=== PATIENT | female | born 1965 | race African-American/Black ===

== ENCOUNTER 2025-03-02 15:31 | Emergency (ER) | payer OTHER ==
[~2025-03-02] VITALS: Ht 167.6 cm; Wt 68.0 kg
[2025-03-02 15:33] VITALS: O2SAT 95
[2025-03-02] MEDS: MORPHINE SULFATE 4 MG/ML INJ (FOR IV/IM USE) IV ONE ×2 (17:14→20:10)
[2025-03-02] MEDS: ONDANSETRON HCL 4MG/2ML INJ IV ONE (17:14)
[2025-03-02] MEDS: SODIUM CHLORIDE 0.9% 1,000 ML IV ONE ×2 (17:14→22:57)
[2025-03-02 18:31] LABS: HEMATOCRIT. 34.4 % (36.0-48.0); HEMOGLOBIN. 11.4 g/dL (12.0-16.0); MEAN PLATELET VOLUME 8.1 fl (7.4-10.4); PLATELET 276 x1000/uL (130-400); RED BLOOD CELL COUNT 3.60 mill/uL (4.2-5.4); RED CELL DISTRIBUTION WIDTH 14.6 % (11.6-14.6)
[2025-03-02 18:46] LABS: BAND% 2.0 % (1.0-6.0); LYMPHOCYTES % MANUAL 2.0 % (20.0-60.0); MONOCYTES % MANUAL 4.0 % (2.0-8.0); NEUTROPHILS % MANUAL 92.0 % (45.0-75.0); PLATELET ESTIMATE NORMAL
[2025-03-02 18:48] LABS: CREATININE 1.7 mg/dL (0.6-1.0); UREA NITROGEN BLOOD 27 mg/dL (9-23)
[2025-03-02 18:50] LABS: ASPARTATE AMINOTRANSFERASE 37 IU/L (<34); BILIRUBIN DIRECT 0.3 mg/dL (<=3.0); BILIRUBIN TOTAL 0.5 mg/dL (0.1-1.0); PROTEIN TOTAL 7.0 g/dL (6.0-8.3)
[2025-03-02] MEDS: CEFTRIAXONE 1GM/50ML 50 ML IV ONE (20:10)
[2025-03-02] MEDS: AZITHROMYCIN 500MG/250ML 250 ML IV ONE (20:37)
[2025-03-02 20:49] LABS: INR 1.1
[2025-03-02] MEDS: HYDROMORPHONE HCL/PF 2MG/ML INJ IV ONE (22:45)
[2025-03-03 00:48] VITALS: BP 117/54; PULSE 111; RESP 25; TEMP 36.9; O2SAT 92
== END 2025-03-03 01:28 | disposition short-term general hospital (02) ==
LOC: ER 15:31 → ENRESERV 03-03 01:16 → ER 03-03 01:28 → CMPBEDREQ 03-03 07:35
DX: R10.11 Right upper quadrant pain (principal); J18.9 Pneumonia, unspecified organism; R65.10 Systemic inflammatory response syndrome (SIRS) of non-infectious origin without acute organ dysfunction; I12.9 Hypertensive chronic kidney disease with stage 1 through stage 4 chronic kidney disease, or unspecified chronic kidney disease; N18.9 Chronic kidney disease, unspecified; N17.9 Acute kidney failure, unspecified; J45.909 Unspecified asthma, uncomplicated; Z98.890 Other specified postprocedural states; Z79.899 Other long term (current) drug therapy
CPT/HCPCS: 80076; 80048; 83605; 83690; 85025; 85610; 87040; 87186; 87077; 36415; 84145; 71045; 74176; 76705; 93005; 96361; 96365; 96375; 99291; J0456; J0696; J2405; J1171; J2270; J7030; Z7610 ×2; A4606